=== PATIENT | female | born 1975 ===

== ENCOUNTER 2019-06-12 08:14 | Outpatient (CLI) | payer OTHER | END 2019-06-12 08:16 | disposition home or self-care (01) | LOC: RAD 08:14 | DX: M54.5 Low back pain (principal); M54.16 Radiculopathy, lumbar region ==

== ENCOUNTER 2021-11-27 11:42 | Outpatient (CLI) | payer OTHER | END 2021-11-27 11:51 | disposition home or self-care (01) | LOC: RAD 11:42 | PROVIDERS: ATTEND Physical Medicine & Rehabilitation | DX: M25.522 Pain in left elbow (principal); M77.12 Lateral epicondylitis, left elbow ==